=== PATIENT | male | born 1985 | race Caucasian/White ===

== ENCOUNTER → 2020-09-02 03:38 | Outpatient (CLI) | payer OTHER, SELFPAY ==
[2020-09-04 12:53] LABS: SARS-CoV-2 RNA PCR Negative
== END ==
PROVIDERS: PCP Family Medicine; Visit Provider Surgery
DX: Z01.812 Encounter for preprocedural laboratory examination (principal); Z20.822 Contact with and (suspected) exposure to COVID-19
CPT/HCPCS: C9803; U0003; U0005

== ENCOUNTER 2020-09-05 00:43 | Day surgery (SDC) | payer OTHER, SELFPAY ==
[2020-08-28 17:17] VITALS: BMI 23.3
--- NOTE | 2020-09-05 08:21 | WPDHPUPDATE1 ---
History and Physical Update Update Date/Time: 09/05/20 08:21 History and Physical has been reviewed, including an updated exam of the patient. There are NO changes in the patient's condition. Risks, benefits, and alternatives have been discussed and questions answered. Patient agrees to proceed with procedure.
[2020-09-05 08:28] VITALS: BP 117/69; PULSE 62; RESP 16; TEMP 36.4; O2SAT 100
[2020-09-05] MEDS: LACTATED RINGERS 1,000 ML 30 ML IV CONT (08:32)
--- NOTE | 2020-09-05 09:24 | P.PNAN_ITS ---
Anes - Initial Pre Proc Eval Procedure: Operation Date: 09/05/20 10:00 Proposed Procedures p Excisional Biopsy Of Posterior Scalp Mass - Mercedes Mitchell MD Date/Time: 09/05/20 09:24 Surgeon: Mercedes Mitchell MD Pre Op Diagnosis: Posterior Scalp Mass Patient Data Age: 35 Gender: M Height: 5 ft 8 in Weight: 69.4 kg Last Vital Signs Temp 36.4 C L 09/05/20 08:28 Pulse 62 09/05/20 08:28 Resp 16 09/05/20 08:28 BP 117/69 09/05/20 08:28 Pulse Ox 100 09/05/20 08:28 Allergies Allergy/AdvReac Type Severity Reaction Status Date / Time No Known Allergies Allergy Mild Verified 09/05/20 08:39 Home Medications Medication Instructions Recorded Confirmed Type No Home Medications 08/23/20 09/05/20 History Patient hx anesthesia problems: none Family hx anesthesia problems: none PMFSH Past Medical History Medical History Depression Surgical History Surgical History [place] teeth extracted Family History Family History Father Hypertension Mother Hypertension Grandparent Heart disease Social History Social History Smoking packs per day: 0.75 Smoking cigarettes per day: 15.0 Years smoked: 20 Smoking pack-years: 15.00 Smoking status: Heavy tobacco smoker Tobacco type: cigarettes Additional smoking assessment comments: 3/4 ppd x 20 years Alcohol intake: current Drinks per week: 12 Substance use: former Substance use type: marijuana Living arrangements: with family Additional occupation/education comments: [employer] care concerns: No Anes - Eval Final PreProcedure Day of Procedure 09/05/20 09:24 Patient weight: normal Heart: regular rate and rhythm Lungs: clear to auscultation Airway: Mallampati scale class 1 Neurological: alert and oriented Last oral intake: >/= 8 hours ASA classification: II Emergent: no Anesthetic plan: proceed Anesthesia type and monitoring: general GIVS and standard monitoring Informed Consent: The patient's anesthetic plan and its attendant risks and benefits were discussed with the patient/family/POA. Questions were solicited and answers provided to the satisfaction of the patient/family/POA.
[2020-09-05] MEDS: ceFAZolin 2 GM/D5W 50 ML 2 GM/50 ML BAG IVPB (09:50)
[2020-09-05] MEDS: BUPIVACAINE/EPINEPHRINE 0.5% 10 ML VIAL 50 ML INFILTRATE (10:16)
[2020-09-05] MEDS: BACITRACIN OINTMENT 15 GM TUBE 1 APPLIC TOPICAL (10:20)
[2020-09-05 10:31] VITALS: BP 113/68; PULSE 56; RESP 10; O2SAT 99
--- NOTE | 2020-09-05 10:31 | PM.PROC ---
Procedure Note - Detailed Date of procedure: 09/05/20 Pre-op diagnosis: Posterior Scalp Mass Post-op diagnosis: same Procedure performed: excisional biopsy posterior scalp mass Description of procedure: The patient was taken to the operating room placed in the lateral position. After adequate induction of mac anesthesia, the patient is prepped and draped in the normal sterile fashion. A time-out was then done to verify the patient's identity, the procedure being performed. I then localized the area in and around this posterior scalp mass. Once adequately localized, made an incision over the mass. It was taken down through the dermis into the subcutaneous tissue. 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 I was able to remove the mass in full in this was sent to pathology for further review. The mass measured approximately 2.5 x 2 cm. I then went ahead and localized the cavity some more in gained hemostasis with the Bovie cautery. We then closed the dermis with 4 O Monocryl subcuticular suture. Sterile dressing was placed. Patient tolerated the procedure well and was alert and awake in the operating room postoperatively. He will be sent to the recovery in stable condition. Anesthesia: MAC and local Surgeon: Mercedes Mitchell MD Estimated blood loss (mL): 5 Drains: No Packing: No Pathology: yes Complications: No immediate complications Condition: stable Disposition: PACU Findings: 2.5 x 2 cm mass in posterior scalp
[2020-09-05 11:00] VITALS: BP 120/76; PULSE 51; RESP 20
[2020-09-05 11:20] VITALS: BP 122/76; PULSE 52; RESP 20
== END 2020-09-05 11:25 | disposition home or self-care (01) ==
PROVIDERS: PCP Family Medicine; Visit Provider Surgery
PROC: (CPT 21012; principal; 2020-09-05 10:00)
DX: D17.0 Benign lipomatous neoplasm of skin and subcutaneous tissue of head, face and neck (principal); F17.210 Nicotine dependence, cigarettes, uncomplicated
CPT/HCPCS: 21012; 88304; A9270; C9803; J0690; J2250; J2704; J3010; J7120; U0003; U0005

== ENCOUNTER 2024-07-10 17:11 | Outpatient (CLI) | payer SELFPAY ==
--- NOTE | ~2024-07-10 | XR_ITS ---
HISTORY: M54.2 - Cervicalgia COMPARISON: None TECHNIQUE: 4 views of the cervical spine were performed. FINDINGS: Visualization of the cervical spine to the superior endplate of T2. Normal curvature of the cervical spine is identified. No prevertebral soft tissue swelling is appreciated. No acute compression fracture is noted. The dens is equidistant between the pillars, without asymmetry. Air column within the trachea is midline. The visualized portions of the bilateral upper lung chavez are unremarkable. No significant listhesis is identified during flexion. 2.6 mm of retrolisthesis is identified at the level of C5 over C6 with extension. IMPRESSION: Unremarkable plain film evaluation of the cervical spine in the neutral and flexion positions, as det yovany above. 2.6 mm of retrolisthesis is identified at the level of C5 over C6 with extension. Reviewed, dictated and finalized at location A. IMPRESSION: Unremarkable plain film evaluation of the cervical spine in the neutral and fle xion positions, as detailed above. 2.6 mm of retrolisthesis is identified at the level of C5 over C6 with extensio n.
--- NOTE | ~2024-07-10 | XR_ITS ---
HISTORY: Other specified acquired deformities of musculoskeletal syst COMPARISON: None TECHNIQUE: AP and axial views of the right clavicle were performed. FINDINGS: No acute or subacute fracture. Joint spaces are preserved and alignment is maintained. Soft tissues are unremarkable without foreign body or significant calcification. Age-appropriate mineralization. IMPRESSION: No acute fracture or dislocation. Reviewed, dictated and finalized at location A.
--- OUTSIDE RECORDS SUMMARY | 2024-07-10 17:47 | XMS_ITS | Continuity of Care Document ---
Author Organization [facility] Address [address] [place] [address] Phone Care Team Providers Care Geologic Technician Name Role Phone Andrea Kendall MD Unavailable Unavailable Allergies, Adverse Reactions, Alerts Substance Reaction Status Criticality No Known Allergies Active No Inform ation Medications Medication Instructions Dosage Effective Dates (start - stop) Status Comments oxycodone 5 mg capsule take 1 capsule by oral route every 4 hours as needed for pain 5 MG - Active Colace 100 mg capsule take 1 capsule by oral route every day at bedtime as needed for DOS: 05/01/22 DPSSC 100 MG - Active Procedures Procedure Date Global/Postop followup visit Global/Postop followup visit Biceps Tenodesis SLAP Repair Scope Debridement Limited [place] Arm Sling Office/outpatient visit,new, [facility] 2021 X-ray exam shoulder complete, minimum 2 views Advance Directives Directive Yes / No Effective Date File Name No Information Encounters Encounter Description Practice Location Reason(s) For Visit Diagnoses Date Provider Providers Copied on Encounter [facility], [address], [id number], [place] tel:[phone] [facility] No Information 3 Enoch Mendez. [address], [place], [address], [place]. tel: [phone] [facility], [address], [id number], [place] [phone] [facility] second postop (chief complaint) Bicipital tendinitis, right shoulderOther bursal cyst, right shoulderSLAP lesion of right shoulder, initial encounterEncounte r for other orthopedic aftercare 3 Enoch Mendez. [address] [address], [place], [address], [place]. tel: [phone] [facility], [address], [id number], [place] [phone] [facility] first postop (chief complaint) Bicipital tendinitis, right shoulderOther bursal cyst, right shoulderSLAP lesion of right shoulder, initial encounterEncounte r for other orthopedic aftercare 3 Enoch Mendez. [address], [address], [place]. tel: [phone] [facility], [address] [place] [address], [id number], [place] [phone] [facility] [place] SLAP lesion of right shoulder, initial encounterBicipita l tendinitis, right shoulderOther bursal cyst, right shoulder 3 Enoch Mendez. [address], [address], [place]. tel: [phone] [facility], [address] [place] [address], [id number], [place] tel:[phone] [facility] No Information 3 Enoch Mendez. [address], [address], [place]. tel: [phone] [facility], [address] [place] [address], [id number], [place] tel:[phone] [facility] No Information 3 Enoch Mendez. [address], [place], [address], [place]. tel: [phone] [facility], [address], [id number], [phone] [facility] Pain in right shoulderSLAP lesion of right shoulder, initial encounter 3 Enoch Mendez. [address] [facility] [address], [place], [address], [place]. tel: [phone] Office/[facility]pa [facility]ient visit,[facility], [address] [address], [place], [place], [id number], [phone] [facility] Right shoulder (chief complaint) Pain in right shoulderSLAP lesion of right shoulder, initial encounter 2 Enoch Mendez. [address] [address], [place], [address], [place]. tel: [phone] Family History Family Member Type Diagnosis Age At Onset Mother Problem (finding) Hypertension Father Problem (finding) Hypertension Payers Payer name Insurance type Covered constitution party ID Joeyherberth manzo(s) DEN Abel [id number] Social History Type Description Quantity Date Captured Comments Alcohol Use Details Unknown Caffeine Use Details Unknown Tobacco Use Status Smoking Status No Information Sex Male Chief Complaint And Reason For Visit No Information Reason For Referral Reason For Referral No Information Plan Of Treatment Date Type Action Status Referral Ordered: X-ray exam shoulder complete, minimum 2 views RT shoulder ordered History Of Present Illness Encounter Date Complaint History Of Prese nt Illness second postop Interval history : Jeyson is a very pleasant 37-year-old male who presents for his second postop visit about 6 weeks status post right shoulder arthroscopic SLAP repair, spinoglenoid notch cyst decompression, extensive debridement, and biceps tenodesis. Date surgery 05/01/2022. Overall he is doing very well. He has no focal concerns or complaints. His pain continues to improve, as does his motion and strength. He has decided not to go to formal physical therapy. He says he has been able to work on strength and motion on his own. He does still have pain and difficulty with internal rotation behind the back, which I explained would be expected without going to therapy. He does endorse a little bit of a rash along his neck and right anterior chest wall that he noticed last week, about 5 weeks after surgery. first postop Interval history : Jeyson is a very pleasant 36-year-old male who presents for his first postop visit about 2 weeks status post right shoulder arthroscopic SLAP repair, spinal glenoid notch cyst decompression, extensive debridement, biceps tenodesis. Date surgery 05/01/2022. Overall he is doing well. He has no focal concerns or complaints. His pain continues to improve, and is well-controlled. No concerns with his incision. He has been out of the sling and moving his shoulder. He feels it is still sore at night and with end ranges of motion, as expected. However, he feels it significantly improving. He denies numbness, tingling, or weakness to the right hand. Right shoulder Jeyson is a very p leasant, active and fit 36-year-old right-hand dominant male samson who presents for initial evaluation of years of chronic, atraumatic right shoulder pain and weakness. He denies focal injury or inciting event. He is not sure how or why this started. It has been going on for a long time. It has been progressively worsening. He locates the pain somewhat posteriorly in his shoulder. He says it hurts and aches to raise his arms at or above shoulder level for long periods of time. After awhile he feels he cannot do it. He has trialed extensive naproxen, PT, Voltaren without sustained relief. He underwent an MRI a few weeks ago but does not have the disk with him. Despite all this, he has not significantly improved, and not satisfied. Functional Status Date Functional Assessmen t No Information Instructions Date Instruction Additional Infor josé luis No Information Assessments Type Assessment Date No Information Patient Care Teams Name Effective Dates (start - stop) Status Members No Information
--- OUTSIDE RECORDS SUMMARY | 2024-07-10 17:47 | XMS_ITS | Continuity of Care Document ---
Author Organization [facility] Address [address] [place] [address] Phone Care Team Providers Care Biodiesel Plant Operations Engineer Name Role Phone Mandeep PTBjorn Unavailable Unavailable Procedures Procedure Date Therapeutic Activities Neuromuscular Re-Ed Therapeutic Exercise PT Evaluation Moderate Complexity Therapeutic Activities Neuromuscular Re-Ed Progress Note Hot or Cold Pack Neuromuscular Re-Ed Therapeutic Activities Therapeutic Exercise Therapeutic Activities Neuromuscular Re-Ed Therapeutic Exercise Hot or Cold Pack Therapeutic Activities Neuromuscular Re-Ed Therapeutic Exercise Hot or Cold Pack Therapeutic Exercise Hot or Cold Pack Therapeutic Activities Neuromuscular Re-Ed Neuromuscular Re-Ed Therapeutic Exercise Therapeutic Activities Hot or Cold Pack Therapeutic Activities Neuromuscular Re-Ed Therapeutic Exercise Hot or Cold Pack Therapeutic Activities Hot or Cold Pack Therapeutic Exercise Neuromuscular Re-Ed OT Evaluation Low Complexity Neuromuscular Re-Ed Therapeutic Activities Therapeutic Exercise Manual Therapy Advance Directives Directive Yes / No Effective Date File Name No Information Encounters Encounter Description Practice Location Reason(s) For Visit Diagnoses Date Provider Providers Copied on Encounter [facility], [place], [place], [id number], tel:[phone] [place] No Information 3 Mandeep Morochoyn. . [facility], [place], [place], [id number], [place] tel:[phone] [facility] No Information 3 Mandeep Morochoyn. . Referring Provider: Andrea Kendall, [address], [place], [address]. tel:[phone] [facility] [address], [place], [place], [id number], tel:[phone] [facility] No Information 3 Mandeep Morochoyn. . Referring Provider: Andrea Kendall, [address], [place], [address]. tel:[phone] [facility], [place], [place], [id number], tel:[phone] [place] No Information 2 Kezia Obregon. . [facility], [place], [place], [id number], [place] tel:[phone] [place] No Information 2 Kezia Obregon. . [facility], [place], [place], [id number], [place] tel:[phone] [place] No Information 2 Kezia Obregon. . [facility], [place], [place], [id number], [place] tel:[phone] [place] No Information 2 Kezia Obregon. . [facility], [address], [place], [place], [id number], tel:[phone] [place] No Information 2 Kezia Obregon. . [facility], [place], [place], [id number], tel:[phone] [place] No Information 2 Kezia Obregon. . [facility], [place], [place], [id number], [place] tel:[phone] [place] No Information 2 Kezia Obregon. . [facility], [place], [place], [id number], [place] tel:[phone] [place] No Information 2 Kezia Obregon. . Family History Family Member Type Diagnosis Age At Onset No Information Payers Payer name Insurance type Covered libertarian ID Jeferson manzo(s) R CI [id number] Social History Type Description Quantity Date Captured Comments Sex Male Smoking Status No Information Chief Complaint And Reason For Visit No Information Reason For Referral Reason For Referral No Information Plan Of Treatment Date Type Action Status Goal Tobacco cessation counseling completed Goal Tobacco Cessation Counseling completed Goal Tobacco Cessation Counseling completed Goal Tobacco cessation counseling completed History Of Present Illness Encounter Date Complaint History Of Prese nt Illness No Information Functional Status Date Functional Assessmen t No Information Instructions Date Instruction Additional Infor mation No Information Assessments Type Assessment Date No Information Patient Care Teams Name Effective Dates (start - stop) Status Members No Information
== END 2024-07-10 17:12 | disposition home or self-care (01) ==
PROVIDERS: PCP Family Medicine
DX: M54.2 Cervicalgia (principal); M95.8 Other specified acquired deformities of musculoskeletal system
CPT/HCPCS: 72050; 73000